=== PATIENT | male | born 1995 | race African-American/Black ===

== ENCOUNTER 2016-09-28 22:54 | Emergency (ER) | payer MEDICAID ==
[2016-09-28 23:01] VITALS: BP 142/94; PULSE 75; RESP 16; TEMP 97.5; O2SAT 95
[2016-09-28] MEDS ORDERED: TDAP ADULT 0.5 ML VIAL (BOOSTRIX) IM ONE (23:27)
--- NOTE | 2016-09-28 23:31 | EDPHY ---
H & P Stated Complaint: R index lac Time Seen by Provider: 09/28/16 23:14 HPI/ROS: Chief complaint: Right pointer finger laceration History of present illness: This is a 21-year-old male who presents to the emergency department for a right pointer finger laceration. Patient cut it on a kitchen knife just prior to arrival. He states he cut the tip. There has been some pain and bleeding. Bleeding controlled with a dressing. He states he still moving the finger well. No reported paresthesias or abnormal coolness in the finger. He does not believe his tetanus is up-to-date. - Personal History Current Tetanus/Diphtheria Vaccine: Unsure Current Tetanus Diphtheria and Acellular Pertussis (TDAP): Unsure - Medical/Surgical History Hx Asthma: No Hx Chronic Respiratory Disease: No Hx Diabetes: No Hx Cardiac Disease: No Hx Renal Disease: No Hx Cirrhosis: No Hx Alcoholism: No Hx HIV/AIDS: No Hx Splenectomy or Spleen Trauma: No Other PMH: PE 2014, - Social History Smoking Status: Never smoked - Physical Exam Exam: General: Alert, nontoxic Skin: 1 cm laceration to the tip of the right pointer finger. No foreign bodies appreciated on inspection. Musculoskeletal: He is flexing extending his right pointer finger in the DIPJ, PIP and MCP joint without difficulty Vascular: Capillary refill brisk in the right pointer finger Neurologic: Sensation intact using light touch and two-point discrimination in the right pointer finger Constitutional: Initial Vital Signs Temperature (C) 36.4 C 09/28/16 22:58 Heart Rate 75 09/28/16 22:58 Respiratory Rate 16 09/28/16 22:58 Blood Pressure 142/94 H 09/28/16 22:58 O2 Sat (%) 95 09/28/16 22:58 O2 Delivery Mode Room Air Allergies/Adverse Reactions: No Known Allergies Allergy (Unverified 09/28/16 22:58) Home Medications: Medication Instructions Recorded Hydrocodone/APAP 5/325 [[place] 1 - 2 tab PO Q4H PRN #10 tab 09/29/16 5/325] Medical Decision Making Procedures: Procedure: Laceration repair. Verbal consent was obtained from the patient. The 1 cm laceration on the right pointer finger was anesthetized in the usual fashion. The wound was irrigated, draped and explored to its base with a gloved finger. There were no deep structures involved. No tendon injury was identified. The wound was repaired with 5 0 Prolene, 3 simple interrupted sutures. The wound repair was simple. The procedure was performed by myself. ED Course/Re-evaluation: Patient seen under the supervision of my secondary supervising physician Dr. Aureliano Deluca. Patient presents to the emergency department for a right pointer finger laceration. He has good musculoskeletal control of the finger. The finger appears to be neurovascularly intact. The wound is cleaned, repaired and dressed. His tetanus is updated. He is discharged home. Asked to follow up with a hand doctor for recheck. Return precautions are given. Patient voiced understanding and agreement with plan. - Data Points Medications Given: Discontinued Medications Diphtheria/Tetanus/Acell Pertussis (Boostrix) 0.5 ml IM .ONCE ONE Stop: 09/28/16 23:28 Last Admin: 09/28/16 23:33 Dose: 0.5 ml Departure - Departure Disposition: Home, Routine, Self-Care Clinical Impression: Finger laceration Qualifiers: Encounter type: initial encounter Qualifier Code: (S61.219A) Laceration without foreign body of unspecified finger without damage to nail, initial encounter Condition: Good Instructions: Laceration (ED), Care For Your Stitches (ED), Acute Wound Care ( ED) Additional Instructions: Follow-up with your primary care doctor or a hand doctor for recheck next week Stitches to be removed in 7 days If symptoms worsen or new symptoms develop return to the emergency department for recheck Referrals: Albert Clay MD [Medical Doctor] - As per Instructions Stand Alone Forms: Work Excuse
== END 2016-09-29 00:02 | disposition home or self-care (01) ==
PROC: 0HQFXZZ Repair Right Hand Skin, External Approach (ICD-10-PCS; principal; 2016-09-28)
DX: S61.210A Laceration without foreign body of right index finger without damage to nail, initial encounter (principal); Z23 Encounter for immunization; W26.0XXA Contact with knife, initial encounter

== ENCOUNTER 2016-09-29 09:52 | Emergency (ER) | payer MEDICAID ==
[2016-09-29 09:56] VITALS: BP 122/74; PULSE 59; RESP 16; TEMP 98.2; O2SAT 94
[2016-09-29] MEDS ORDERED: HYDROCODONE/APAP 5/325 TAB PO ONE (10:08)
[2016-09-29] MEDS ORDERED: IBUPROFEN 600 MG TAB PO ONE (10:08)
--- NOTE | 2016-09-29 10:08 | EDPHY ---
H & P Stated Complaint: HERE LAST NIGHT AND HAD R 2ND FINGER SUTURED, HERE FOR PAIN Time Seen by Provider: 09/29/16 09:55 HPI/ROS: CHIEF COMPLAINT: Right index finger pain HISTORY OF PRESENT ILLNESS: The patient is a 21 y/o male returning to the ED complaining of right index finger pain following a laceration and suture repair less than 12 hours ago. He says he was cut with a knife and denies chance of foreign body in the wound. Family member at bedside states he "was up all night from the pain." He denies increasing redness, swelling, or purulent drainage from the site. No fever. He denies pertinent medical history. - Personal History Current Tetanus/Diphtheria Vaccine: Yes Current Tetanus Diphtheria and Acellular Pertussis (TDAP): Yes - Medical/Surgical History PMH: Denies Hx Asthma: No Hx Chronic Respiratory Disease: No Hx Diabetes: No Hx Cardiac Disease: No Hx Renal Disease: No Hx Cirrhosis: No Hx Alcoholism: No Hx HIV/AIDS: No Hx Splenectomy or Spleen Trauma: No Other PMH: PE 2014, - Social History Smoking Status: Never smoked Additional Social History: Family at bedside - Physical Exam Exam: General Appearance: Alert, no distress Neurological: A&O, nonfocal, normal gait Skin: Warm and dry, no rash Right hand: 1.5cm finger tip laceration involving nail. No subungual hematoma, erythema, warmth, or drainage. Range of motion of finger normal without increasing pain. Psychiatric: Mood and affect normal Constitutional: Initial Vital Signs Temperature (C) 36.8 C 09/29/16 09:53 Heart Rate 59 L 09/29/16 09:53 Respiratory Rate 16 09/29/16 09:53 Blood Pressure 122/74 H 09/29/16 09:53 O2 Sat (%) 94 09/29/16 09:53 O2 Delivery Mode Room Air Allergies/Adverse Reactions: No Known Allergies Allergy (Unverified 09/28/16 22:58) Home Medications: Medication Instructions Recorded Hydrocodone/APAP 5/325 [[place] 1 - 2 tab PO Q4H PRN #10 tab 09/29/16 5/325] Medical Decision Making ED Course/Re-evaluation: This is a healthy 21 y/o male returning to the ED for a recheck of a fingertip laceration last night due to "10/10" pain that apparently kept him from sleeping. Laceration repair is clean, dry, and intact without signs of infection , subungual hematoma or vascular compromise. No obvious source for his severe pain identified. He is afebrile here. He will be discharged with ibuprofen and [place] instructions. He understands to follow previous discharge instructions regarding suture care and removal. He is comfortable with this plan. - Data Points Medications Given: Discontinued Medications Acetaminophen/Hydrocodone Bitart ([place] 5/325) 1 tab PO EDNOW ONE Stop: 09/29/16 10:09 Last Admin: 09/29/16 10:26 Dose: 1 tab Ibuprofen (Motrin) 600 mg PO EDNOW ONE Stop: 09/29/16 10:09 Last Admin: 09/29/16 10: Dose: 600 mg Departure - Departure Disposition: Home, Routine, Self-Care Clinical Impression: Encounter for re-check of laceration wound Condition: Good Instructions: Laceration (ED), Care For Your Stitches (ED) Additional Instructions: 1. Use 600mg ibuprofen 3 times daily for the next 3-4 days as needed for pain. 2. Use [place] as prescribed when needed for pain not controlled by ibuprofen. 3. Follow up with the doctor you were referred to last night. Return for suture removal as previously directed. Referrals: Albert Clay MD [Medical Doctor] - As per Instructions Stand Alone Forms: Work Excuse Prescriptions: Hydrocodone/APAP 5/325 [[place] 5/325] 1 - 2 tab PO Q4H PRN #10 tab PRN Reason: Pain, Moderate Report Scribed for: Keila Hernandez Report Scribed by: Parvin Pina Date of Report: 09/29/16 Time of Report: 10: Physician Review and Approval Statement: 09/29/16 10:01 Portions of this note were transcribed by a medical device engineer. I personally performed a history, physical exam, medical decision making, and confirmed accuracy of information the transcribed note.
== END 2016-09-29 10:28 | disposition home or self-care (01) ==
DX: Z48.01 Encounter for change or removal of surgical wound dressing (principal)
CPT/HCPCS: L3925

== ENCOUNTER 2016-12-14 10:12 | Emergency (ER) | payer MEDICAID ==
[2016-12-14 10:19] VITALS: RESP 18
--- NOTE | 2016-12-14 11:23 | EDPHY ---
H & P Time Seen by Provider: 12/14/16 11:15 HPI/ROS: HPI: 31-year-old male presents to emergency department with chief concern right 1st MTPJ pain, swelling, warmth that onset suddenly overnight. Reports 6/ 10 pain with ambulation. Reports warmth. Aggravating factor ambulation. No alleviating factors. Denies trauma. Denies fever, chills, myalgias, URI symptoms, shortness of breath, chest pain, abdominal pain, nausea, vomiting, other joint or long bone pain, or recent infections. Reports a resolving rash on his buttocks recently. Primary care and left at. 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 No personal or family history of gout or arthritis. 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 No acute distress. Head: Normalocephalic. Atraumatic. EENT: PERRLA. EOMI. Neck: Supple, nontender. No midline tenderness, full ROM. Respiratory: Breathing unlabored. Lungs clear to auscultation bilaterally. CV: Chest nontender, atraumatic. Distal pulses 2+. Brisk cap refill all extremities. GI: Deferred Neuro: Alert. Oriented x 3. Sensation intact all extremities. Skin: Skin warm, dry, intact. No ecchymosis, abrasions, or lacerations. Extremities: No discomfort to palpation of the right hip, knee, leg, ankle. Full ROM. Right foot with discomfort 1st MTPJ in the setting of warmth, mild swelling. No other foot pain. Negative mid foot torsion. Full range of motion 2nd, 3rd, 4th, 5th toes. No calcaneal pain, or malleolar discomfort. Constitutional: Initial Vital Signs Temperature (C) 36.7 C 12/14/16 10:18 Heart Rate 67 12/14/16 10:18 Respiratory Rate 18 12/14/16 10:18 Blood Pressure 145/96 H 12/14/16 10:18 O2 Sat (%) 97 12/14/16 10:18 O2 Delivery Mode Room Air Allergies/Adverse Reactions: No Known Allergies Allergy (Verified 12/14/16 10:17) Home Medications: Medication Instructions Recorded Cephalexin [Keflex (*)] 500 mg PO QID #28 cap 12/14/16 Hydrocodone/APAP 5/325 [[place] 1 tab PO Q4H PRN #10 tab 12/14/16 5/325 (*)] Indomethacin [Indocin 25 mg (*)] 50 mg PO Q8 PRN #42 cap 12/14/16 Medical Decision Making - Diagnostics Imaging: Right Great Toe, Three Views History: pain in first metatarsal-phalangeal joint, no trauma, possible gout versus infection Findings: The first metatarsal-phalangeal joint is normal in width and normally aligned. There is no evidence of a joint effusion, erosion or arthritis. There is mild chronic hypertrophic change of the medial first metatarsal head. There is no soft tissue gas, calcification or ossification. No radiopaque foreign body is identified. Impression: Nothing acute identified. Dictated By: Kranthi Hartman MD ED Course/Re-evaluation: [id number] male presents to emergency department complaining of pain in his 1st right MTPJ. Onset suddenly overnight. Has not had these symptoms before. No personal family history of gout. Pain is atraumatic. CBC, basic metabolic panel, x-ray all pending. Uric acid pending. Declines pain medication presently. 12:25 white count [id number]. Creatinine 1.0. Uric acid 8, upper level of normal. Diagnosis gout versus infection. X-ray negative. Will start patient on Keflex as well as begin a NSAID. He will follow up tomorrow with primary care with his x-ray and lab results. He understands and agrees to do so. Counseling regarding NSAID use has been given. Differential Diagnosis: Differential diagnosis includes but is not limited to gouty arthritis, septic joint, osteomyelitis, musculoskeletal pain - Data Points Laboratory Results: Laboratory Results 12/14/16 11:44 12/14/16 11:44 12/14/16 12/14/16 11:44 11:44 WBC 10.12 10^3/uL H 10^3/uL (3.80-9.50) RBC 4.60 10^6/uL 10^6/uL (4.40-6.38) Hgb 14.8 g/dL g/dL (13.7-17.5) Hct 43.0 % % (40.0-51.0) MCV 93.5 fL fL (81.5-99.8) MCH 32.2 pg pg (27.9-34.1) MCHC 34.4 g/dL g/dL (32.4-36.7) RDW 13.9 % % (11.5-15.2) Plt Count 210 10^3/uL 10^3/uL (150-400) MPV 10.1 fL fL (8.7-11.7) Neut % (Auto) 71.5 % % (39.3-74.2) Lymph % (Auto) 19.3 % % (15.0-45.0) Cloud % (Auto) 7.3 % % (4.5-13.0) Eos % (Auto) 1.1 % % (0.6-7.6) Baso % (Auto) 0.5 % % (0.3-1.7) Nucleat RBC Rel Count 0.0 % % (0.0-0.2) Absolute Neuts (auto) 7.24 10^3/uL H 10^3/uL (1.70-6.50) Absolute Lymphs (auto) 1.95 10^3/uL 10^3/uL (1.00-3.00) Absolute Monos (auto) 0.74 10^3/uL 10^3/uL (0.30-0.80) Absolute Eos (auto) 0.11 10^3/uL 10^3/uL (0.03-0.40) Absolute Basos (auto) 0.05 10^3/uL 10^3/uL (0.02-0.10) Absolute Nucleated RBC 0.00 10^3/uL 10^3/uL (0-0.01) Immature Gran % 0.3 % % (0.0-1.1) Immature Gran # 0.03 10^3/uL 10^3/uL (0.00-0.10) Sodium 139 mEq/L mEq/L (134-144) Potassium 4.8 mEq/L mEq/L (3.5-5.2) Chloride 103 mEq/L mEq/L (97-110) Carbon Dioxide 28 mEq/l mEq/l (22-31) Anion Gap 8 mEq/L mEq/L (8-16) BUN 12 mg/dL mg/dL (7-23) Creatinine 1.0 mg/dL mg/dL (0.7-1.3) Estimated GFR > 60 Glucose 90 mg/dL mg/dL (70-100) Uric Acid 8.0 mg/dL mg/dL (3.5-8.5) Calcium 9.8 mg/dL mg/dL (8.5-10.4) Departure - Departure Disposition: Home, Routine, Self-Care Clinical Impression: Toe pain, right Condition: Good Instructions: Swollen Joint (ED) Additional Instructions: Plan: Indomethacin 50 mg 3 times daily (every 8 hours) with food--take only after you have eaten something, stay well hydrated while use this medication as it is excreted by the kidneys and You need to be well hydrated 1 [place] every 4 hours additionally if pain is severe--Never drink or drive while taking this medication. This medication impairs decision making capacity so do not work or sign important documents while taking. This medication its constipating so drink plenty of fluids and consider an [id number] stool softener such as docusate sodium (Colace) while taking this medication. This medication has addictive properties. You should use the least amount for the shortest amount of time. [facility] ED and Urgent [facility] do not refill narcotic pain medication prescriptions. This is a hospital policy. You will need to follow up as indicated for recheck for further narcotic refills. Keflex antibiotic for 1 week as prescribed Follow up with primary care tomorrow for recheck without fail with your labs and x-ray--When you call to schedule appointment, please let the office know you are an "ER follow up" appointment" Referrals: GENESIS ROSAS [Other] - As per Instructions Prescriptions: Cephalexin [Keflex (*)] 500 mg PO QID #28 cap Hydrocodone/APAP 5/325 [[place] 5/325 (*)] 1 tab PO Q4H PRN #10 tab PRN Reason: severe pain Indomethacin [Indocin 25 mg (*)] 50 mg PO Q8 PRN #42 cap PRN Reason: joint inflammation
[2016-12-14 11:55] LABS: % IMMATURE GRANULYOCYTES 0.3 % (0.0-1.1); ABSOLUTE IMMATURE GRANULOCYTES 0.03 10^3/uL (0.00-0.10); ADD DIFF? NO; ADD MORPH? NO; ADD SCAN? NO; ATYPICAL LYMPHOCYTE FLAG 0 (0-99); FRAGMENT RBC FLAG 0 (0-99); HEMOGLOBIN 14.8 g/dL (13.7-17.5); LEFT SHIFT FLG 0 (0-99); LIPEMIA HEMOLYSIS FLAG 90 (0-99); MEAN CELL HEMOGLOBIN 32.2 pg (27.9-34.1); MEAN CELL HEMOGLOBIN CONCENTR. 34.4 g/dL (32.4-36.7); MEAN CELL VOLUME 93.5 fL (81.5-99.8); MEAN PLATELET VOLUME 10.1 fL (8.7-11.7); PLATELET CLUMPS FLAG 0 (0-99); PLATELET COUNT 210 10^3/uL (150-400); RED CELL DISTRIBUTION WIDTH 13.9 % (11.5-15.2)
[2016-12-14 12:14] LABS: ANION GAP 8 mEq/L (8-16); CALCIUM 9.8 mg/dL (8.5-10.4); CARBON DIOXIDE 28 mEq/l (22-31); CHLORIDE 103 mEq/L (97-110); GLOMERULAR FILTRATION RATE > 60; GLUCOSE 90 mg/dL (70-100); POTASSIUM 4.8 mEq/L (3.5-5.2); SODIUM 139 mEq/L (134-144)
[2016-12-14 12:54] VITALS: BP 136/86; PULSE 66; TEMP 99; O2SAT 99
== END 2016-12-14 12:53 | disposition home or self-care (01) ==
DX: M79.674 Pain in right toe(s) (principal)